=== PATIENT | male | born 1960 | race Caucasian/White ===

== ENCOUNTER 2017-01-13 15:22 | Inpatient (IN) | payer OTHER ==
[2017-01-13] VITALS (7 sets, daily range): BP systolic 119–128; BP diastolic 73–82; PULSE 75–111; RESP 16–24; TEMP 98.5–98.9; O2SAT 96–100
[~2017-01-13] VITALS: Ht 172.7 cm; Wt 85.3 kg
[2017-01-13] MEDS ORDERED: DIPHTH/TETANUS/ACEL PERTUSSIS (BOOSTER) 0.5 ML VIAL/PFS IM ONE (15:31)
[2017-01-13] MEDS ORDERED: MIDAZOLAM HCL 5 MG/ML VIAL (1 ML) ONE (15:31)
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
[2017-01-13 15:53] LABS: AUTOMATED NEUTROPHIL # 2.8 TH/MM3 (1.8-7.7); BASOPHIL % 0.5 % (0.0-2.0); EOSINOPHIL % 0.2 % (0.0-4.0); HEMATOCRIT 44.8 % (39.0-51.0); HEMO FLAGS DIFF FINAL; LYMPH % 23.3 % (9.0-44.0); LYMPHOCYTE # 1.1 TH/MM3 (1.0-4.8); MEAN CELL VOLUME 96.7 FL (80.0-100.0); MEAN CORPUSCULAR HEMOGLOBIN 33.9 PG (27.0-34.0); MONO % 16.8 % (0.0-8.0); NEUT % 59.2 % (16.0-70.0); PLATELET COUNT 135 TH/MM3 (150-450); RED BLOOD COUNT 4.64 MIL/MM3 (4.50-5.90); RED CELL DISTRIBUTION WIDTH 14.5 % (11.6-17.2); WHITE BLOOD COUNT 4.8 TH/MM3 (4.0-11.0)
[2017-01-13] MEDS ORDERED: IOHEXOL 350 MG/ML 10 ML VIAL (for RAD DIAG) IV ONE (15:55)
[2017-01-13 15:59] LABS: I-STAT POTASSIUM 3.7 MMOL/L (3.5-4.9)
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
[2017-01-13 16:08] LABS: APTT (PATIENT) 24.8 SEC (24.3-30.1); INTERNATIONAL NORMALIZED RATIO 0.9 RATIO; PROTHROMBIN TIME - PATIENT 9.9 SEC (9.8-11.6)
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
[2017-01-13] MEDS ORDERED: SODIUM CHLORIDE 0.9% FLUSH 10 ML FLUSH IV FLUSH PRN (16:15)
[2017-01-13] MEDS ORDERED: CHLORHEXIDINE GLUCONATE 2 % 1 PACK (2 CLOTHS) TOP PRN (16:15)
[2017-01-13] MEDS ORDERED: MISCELLANEOUS NURSING INFORMATION XX SCH (16:15)
[2017-01-13] MEDS ORDERED: ONDANSETRON HCL 4 MG/2 ML VIAL IV PRN (16:15)
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
[2017-01-13] MEDS ORDERED: PROPOFOL 200 MG/20 ML AMP IV ONE (16:45)
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
--- NOTE | 2017-01-13 16:49 | PD.CONS ---
HPI Consult Requested By Primary Care Physician Review of Systems UNOBTAINABLE ROS Limitations: Clinical Condition, Intubated, Altered Mental Status Past Family Social History Allergies: Coded Allergies: UNOBTAINABLE (Unverified , 01/13/17) Past Medical History UNOBTAINABLE Past Surgical History UNOBTAINABLE Reported Medications UNOBTAINABLE Active Ordered Medications Current Medications Midazolam HCl (Versed Inj) 5 mg STK-MED ONCE .ROUTE ; Start 01/13/17 at 15:31; Stop 01/13/17 at 15:42; Status DC Diphtheria/ Tetanus/Acell Pertussis (Boostrix Inj) 0.5 ml STK-MED ONCE IM ; Start 01/13/17 at 15:31; Stop 01/13/17 at 15:43; Status DC Iohexol 100 ml 100 ml STK-MED ONCE IV Last administered on 01/13/17 15:55; Start 01/13/17 at 15:55; Stop 01/13/17 at 15:56; Status DC Sodium Chloride (NS 1000 ml Inj) 1,000 ml @ 125 mls/hr Q8H IV Last administered on 01/13/17 20:37; Start 01/13/17 at 16:02 Sodium Chloride (NS Flush) 2 ml UNSCH PRN IV FLUSH FLUSH AFTER USING IV ACCESS ; Start 01/13/17 at 16:15 Sodium Chloride (NS Flush) 2 ml BID IV FLUSH Last administered on 01/13/17 20: 37; Start 01/13/17 at 21:00 Fentanyl Citrate (fentaNYL INJ) 50 mcg Q1H PRN IV PUSH Pain scale 6-10 &/or sedation; Start 01/13/17 at 16:15 Ondansetron HCl (Zofran Inj) 4 mg Q6H PRN IV NAUSEA OR VOMITING; Start 01/13/17 at 16:15 Lactulose (Lactulose Liq) 30 ml DAILY PO ; Start 01/13/17 at 16:15 Miscellaneous Information 1 Q361D XX Last administered on 01/13/17 20:37; Start 01/13/17 at 16:15 Chlorhexidine Gluconate (Chlorhexidine 2% Cloth) 3 pack Taper DAILY@04 TOP ; Start 01/14/17 at 04:00; Stop 01/10/18 at 03:59 Chlorhexidine Gluconate (Chlorhexidine 2% Cloth) 3 pack UNSCH PRN TOP HYGIENIC CARE; Start 01/13/17 at 16:15 Propofol (Diprivan 200 Mg/20 ml Inj) 100 mg ONCE ONCE IV ; Start 01/13/17 at 16 :45; Stop 01/13/17 at 16:46; Status DC Chlordiazepoxide (Librium) 50 mg ONCE PO ; Start 01/13/17 at 20:30; Stop 01/13/17 at 20:31; Status DC Family History UNOBTAINABLE Social History UNOBTAINABLE Physical Exam Vital Signs Vital Signs Date Time Temp Pulse Resp B/P Pulse Ox O2 Delivery O2 Flow Rate FiO2 01/13/17 15:30 100 4.00 Physical Exam The patient is alert, confused, oriented to self. GCS is 15 Cranial nerve examination demonstrates the pupils to be equal, round, and reactive to light. Extra-ocular movements are intact with normal convergence. Facial motor function appears normal and symmetrical. Face sensation, hearing, visual haywood, and olfaction can not be assessed properly due to the patients condition. The patient has an intact corneal reflex and a gag reflex. Sternocleidomastoid and trapezius have normal and symmetrical strength. Other cranial nerves are intact. Neck is soft and supple. Cervical spine has a normal range of motion of the cervical spine without pain. There is no tenderness to palpation to the spinous processes or paraspinal muscles. Muscle testing reveals normal bulk and tone overall without rigidity, spasticity , fasciculations, or atrophy. Muscle strength is 5/5 in all muscle groups of both upper and lower extremities.Right lower extr exam limited due to his orthopedic dislocation Deep tendon reflexes are 1+ and symmetrical in the biceps, triceps, and brachioradialis, bilaterally, in the upper extremities. In the lower extremities , the patellar and Achilles are 1+, bilaterally. There is a bilateral plantar flexion response. Hoffmanns sign is negative. There is no clonus or other abnormal reflexes noted. Cerebellar examination is limited due to the patient condition, but no obvious deficits are noted. Laboratory Laboratory Tests Test 01/13/17 15:25 White Blood Count 4.8 Red Blood Count 4.64 Hemoglobin 15.7 Bedside Hemoglobin 16.3 Hematocrit 44.8 Bedside Hematocrit 48.0 Mean Corpuscular Volume 96.7 Mean Corpuscular Hemoglobin 33.9 Mean Corpuscular Hemoglobin 35.0 Concent Red Cell Distribution Width 14.5 Platelet Count 135 Mean Platelet Volume 7.4 Neutrophils (%) (Auto) 59.2 Lymphocytes (%) (Auto) 23.3 Monocytes (%) (Auto) 16.8 Eosinophils (%) (Auto) 0.2 Basophils (%) (Auto) 0.5 Neutrophils # (Auto) 2.8 Lymphocytes # (Auto) 1.1 Monocytes # (Auto) 0.8 Eosinophils # (Auto) 0.0 Basophils # (Auto) 0.0 CBC Comment DIFF FINAL Differential Comment Prothrombin Time 9.9 Prothromb Time International 0.9 Ratio Activated Partial 24.8 Thromboplast Time Bedside Sodium 141 Bedside Potassium 3.7 Bedside Chloride 107 Bedside Blood Urea Nitrogen 4 Bedside Creatinine 1.1 Bedside Glucose 141 Ethyl Alcohol Level 523 Blood Type A NEGATIVE Antibody Screen NEGATIVE Result Diagram: 01/13/171524 Imaging Last Impressions Pelvis X-Ray 01/13/171524 Signed Impressions: Service Date/Time: Friday, January 13, 2017 15:17 - CONCLUSION: Suspected dislocation of the right hip prosthesis. Dedicated hip x-ray suggested. Samuel Hanson Jr., MD Lumbar Spine CT 01/13/171524 Signed Impressions: Service Date/Time: Friday, January 13, 2017 15:50 - CONCLUSION: 1. Degenerated disc and facet arthritis throughout the lumbar spine as above. No acute fracture of the cervical spine is identified. Sarabjit Mckenzie MD Head CT 01/13/171524 Signed Impressions: Service Date/Time: Friday, January 13, 2017 15:39 - CONCLUSION: 1. 4.4 mm extra-axial fluid collection along the left frontal cortices most consistent with an acute, small subdural hematoma. There is no significant mass effect associated with this. Sarabjit Mckenzie MD Chest X-Ray 01/13/171524 Signed Impressions: Service Date/Time: Friday, January 13, 2017 15:17 - CONCLUSION: No acute disease. Samuel Hanson Jr., MD Cervical Spine CT 01/13/171524 Signed Impressions: Service Date/Time: Friday, January 13, 2017 15:39 - CONCLUSION: 1. No acute fracture of the cervical spine is identified. 2. Degenerative changes as above. Sarabjit Mckenzie MD Abdomen/Pelvis CT 01/13/17 1525 Signed Impressions: Service Date/Time: Friday, January 13, 2017 15:50 - CONCLUSION: No acute traumatic injury in the abdomen or pelvis. Reinier Bain MD Attending Statement I reviewed his clinical and radiological studies. neuro checks in a serial fashion. Placement of ICP monitor is not indicated at this time. Non surgical management. Folllow up CT in AM Syncope workup. Echocardiogram, carotid Dupklex, Holter. Consult neurology Respiratory. pulmonary toilette, nasotracheal suction, and breathing treatments with nebulizers. PT and OT eval Nutrition. Oral diet Right hip diaslocation. Consult orthopedics Alcohol intoxication IV fluid hydration. Librium Renal. monitor closely urine output, BUN and creatinine Endocrine. Monitor serial Acu checks and SSI for tight control ID monitor for signs of infection Protonix for stress ulcer prophylaxis Dimas hose and SCD's for DVT prophylaxis Rayshawn Harris MD January 13, 2017 16:49
--- NOTE | 2017-01-13 17:11 | RADRPT ---
EXAM DATE/TIME: 01/13/2017 17:05 [facility] COMPARISON: PELVIS AP ONLY, January 13, 2017, 15:17. INDICATIONS : Post reduction of the right hip. MEDICAL HISTORY : Unobtainble. SURGICAL HISTORY : Unobtainble. ENCOUNTER: Subsequent ACUITY: 1 day PAIN SCORE: Non-responsive. LOCATION: Right hip. FINDINGS: Single frontal view of the right hip reveals satisfactory appearance of right total hip arthroplasty. CONCLUSION: Satisfactory alignment Reinier Bain MD on January 13, 2017 at 17:08 Board Certified Radiologist. This report was verified electronically.
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
[2017-01-13] MEDS: LACTULOSE SYRUP 20 GM/30 ML CUP PO SCH (19:25)
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
[2017-01-13] MEDS ORDERED: chlordiazePOXIDE 25 MG CAP PO SCH (20:30)
[2017-01-13] MEDS: SODIUM CHLORIDE 0.9% FLUSH 10 ML FLUSH IV FLUSH SCH (20:37)
[2017-01-13] MEDS: SODIUM CHLOR 0.9% 1000 ML INJ 1,000 ML IV SCH ×2 (20:37→22:36)
[2017-01-13] MEDS ORDERED: chlordiazePOXIDE 25 MG CAP PO ONE (21:00)
--- NOTE | 2017-01-13 22:23 | RADRPT ---
EXAM DATE/TIME: 01/13/2017 22:09 [place] COMPARISON: CT BRAIN W/O CONTRAST, January 13, 2017, 15:39. INDICATIONS : Follow up subdural hematoma RADIATION DOSE: 47.56 CTDIvol (mGy) MEDICAL HISTORY : Non-responsive. SURGICAL HISTORY : Non-responsive. ENCOUNTER: Initial ACUITY: 1 day PAIN SCALE: 2/10 LOCATION: Left cranial TECHNIQUE: Multiple contiguous axial images were obtained of the head. Using automated exposure control and adj ustment of the mA and/or kV according to patient size, radiation dose was kept as low as reasonably a chievable to obtain optimal diagnostic quality images. FINDINGS: CEREBRUM: The ventricles are normal for age. No evidence of midline shift, mass lesion, or acute infarction. T here is a small subtle high density extra-axial hemorrhage again noted along the left frontal cortex. This is unchanged in appearance than measures approximately 3.3 cm in length and 4-5 mm in greatest diameter. There is no adjacent mass effect. POSTERIOR FOSSA: The cerebellum and brainstem are intact. The 4th ventricle is midline. The cerebellopontine angle i s unremarkable. EXTRACRANIAL: The visualized portion of the orbits is intact. SKULL: The calvaria is intact. No evidence of skull fracture. CONCLUSION: 1. Stable appearance of the extra-axial fluid collection along the left frontal cortex most consisten t with a small subdural hematoma. There is no mass effect. 2. No new hemorrhage. Jagjit Hernandez MD on January 13, 2017 at 22:16 Board Certified Radiologist. This report was verified electronically.
[2017-01-13] MEDS ORDERED: MULTIVITAMIN INJ 10 ML, THIAMINE INJ 100 MG, FOLIC ACID INJ 1 MG in DEXT 5%-NACL 0.9% 5... IV ONE (23:15)
[2017-01-14] VITALS (10 sets, daily range): BP systolic 126–157; BP diastolic 80–91; PULSE 77–100; RESP 14–24; TEMP 96.9–99; O2SAT 95–99
[2017-01-14] MEDS: SODIUM CHLOR 0.9% 1000 ML INJ 1,000 ML IV SCH ×5 (03:44→23:36)
[2017-01-14 04:56] LABS: BICARBONATE 20.7 MEQ/L (21.0-32.0); CALCIUM-PROTEIN CORRECTED 7.8 MG/DL (8.5-10.1); MAGNESIUM 1.7 MG/DL (1.5-2.5); POTASSIUM 3.2 MEQ/L (3.5-5.1); TOTAL BILIRUBIN ADULT 0.3 MG/DL (0.2-1.0)
[2017-01-14] MEDS: CHLORHEXIDINE GLUCONATE 2 % 1 PACK (2 CLOTHS) TOP SCH (05:24)
[2017-01-14 06:14] LABS: AUTOMATED NEUTROPHIL # 3.4 TH/MM3 (1.8-7.7); BASOPHIL % 0.3 % (0.0-2.0); HEMATOCRIT 41.2 % (39.0-51.0); LYMPH % 12.5 % (9.0-44.0); LYMPHOCYTE # 0.6 TH/MM3 (1.0-4.8); MEAN CORPUSCULAR HEMOGLOBIN 32.4 PG (27.0-34.0); MEAN CORPUSCULAR HGB CONC 32.7 % (32.0-36.0); NEUT % 74.2 % (16.0-70.0); PLATELET COUNT 89 TH/MM3 (150-450); RED BLOOD COUNT 4.16 MIL/MM3 (4.50-5.90); RED CELL DISTRIBUTION WIDTH 14.6 % (11.6-17.2); WHITE BLOOD COUNT 4.6 TH/MM3 (4.0-11.0)
[2017-01-14 06:28] LABS: HEMO FLAGS AUTO DIFF
[2017-01-14 07:57] LABS: PLATELET ESTIMATE SMEAR LOW (NORMAL); PLATELET MORPHOLOGY NORMAL (NORMAL); SCAN/DIFF AUTO DIFF CONFIRMED
[2017-01-14] MEDS: LACTULOSE SYRUP 20 GM/30 ML CUP PO SCH (08:54)
[2017-01-14] MEDS: SODIUM CHLORIDE 0.9% FLUSH 10 ML FLUSH IV FLUSH SCH ×2 (08:54→21:00)
[2017-01-14] MEDS ORDERED: POTASSIUM CHLOR 20 MEQ PREMIX 100 ML IV ONE (09:15)
[2017-01-14] MEDS: MULTIVITAMINS/MINERALS THERAPEUTIC TAB PO SCH (09:56)
[2017-01-14] MEDS: THIAMINE HCL 100 MG TAB PO SCH (09:56)
[2017-01-14] MEDS: FOLIC ACID 1 MG TAB PO SCH (09:56)
[2017-01-14] MEDS: oxyCODONE/ACETAMINOPHEN 5 MG/325 MG TAB PO PRN (11:21)
[2017-01-14] MEDS ORDERED: FLUMAZENIL 0.5 MG/5 ML VIAL IV PUSH PRN (13:30)
[2017-01-14] MEDS ORDERED: LORazepam 1 MG TAB PO PRN (13:30)
[2017-01-14] MEDS ORDERED: LORazepam 2 MG/ML VIAL IV PUSH PRN ×4 (13:30)
[2017-01-14] MEDS ORDERED: LORazepam 2 MG TAB PO PRN (13:30)
--- NOTE | 2017-01-14 13:57 | HHI.NSPN ---
Note Status Status: Progress Note Interval History Interval History 01/14. Remains neurologically stable. GCS 15. Mild headaches Labs, Micro, & Vital Signs Results Date Time Temp Pulse Resp B/P Pulse Ox O2 Delivery O2 Flow Rate FiO2 01/14/17 12:21 15 01/14/17 12:00 98.9 96 24 138/80 99 01/14/17 12:00 96 01/14/17 10:00 91 01/14/17 08:00 86 01/14/17 08:00 98.9 86 22 157/91 96 01/14/17 07:00 96 Nasal Cannula 2.00 01/14/17 06:00 100 01/14/17 04:00 98.4 100 14 143/82 97 01/14/17 04:00 100 01/14/17 02:52 18 01/14/17 02:00 98 01/14/17 00:00 99.0 100 19 126/82 96 01/14/17 00:00 100 01/13/17 22:00 111 01/13/17 20:00 110 01/13/17 20:00 98.6 110 23 119/73 96 01/13/17 19:00 100 Nasal Cannula 2.00 01/13/17 18:30 98.5 100 24 128/82 100 01/13/17 18:15 98.9 75 16 124/78 98 Nasal Cannula 2 01/13/17 16:58 98 Nasal Cannula 4.00 01/13/17 16:58 98 4.00 01/13/17 16:45 16 100 Nasal Cannula 2 01/13/17 16:30 100 Room Air 01/13/17 15:30 100 Nasal Cannula 4.00 01/13/17 15:30 100 4.00 01/14/17 07:00 Intake Total 1427 ml Output Total 3850 ml Balance -2423 ml Constitutional Vital Signs Date Time Temp Pulse Resp B/P Pulse Ox O2 Delivery O2 Flow Rate FiO2 01/14/17 12:21 15 01/14/17 12:00 98.9 96 24 138/80 99 01/14/17 12:00 96 01/14/17 10:00 91 01/14/17 08:00 86 01/14/17 08:00 98.9 86 22 157/91 96 01/14/17 07:00 96 Nasal Cannula 2.00 01/14/17 06:00 100 01/14/17 04:00 98.4 100 14 143/82 97 01/14/17 04:00 100 01/14/17 02:52 18 01/14/17 02:00 98 01/14/17 00:00 99.0 100 19 126/82 96 01/14/17 00:00 100 01/13/17 22:00 111 01/13/17 20:00 110 01/13/17 20:00 98.6 110 23 119/73 96 01/13/17 19:00 100 Nasal Cannula 2.00 01/13/17 18:30 98.5 100 24 128/82 100 01/13/17 18:15 98.9 75 16 124/78 98 Nasal Cannula 2 01/13/17 16:58 98 Nasal Cannula 4.00 01/13/17 16:58 98 4.00 01/13/17 16:45 16 100 Nasal Cannula 2 01/13/17 16:30 100 Room Air 01/13/17 15:30 100 Nasal Cannula 4.00 01/13/17 15:30 100 4.00 01/14/17 07:00 Intake Total 1427 ml Output Total 3850 ml Balance -2423 ml Review of Systems/Exam Exam Mr. Alba is alert and oriented x 3. Follows commands without apraxia. Speech is fluent. Cranial nerve examination: pupils equal, round, and reactive to light. Extra- ocular movements are intact with normal convergence. Facial motor function normal and symmetrical. Neck is soft and supple. Muscle strength is 5/5 in all muscle groups of both upper and left lower extremities. Right lower extremity exam limited due to his orthopedic dislocation There is a bilateral plantar flexion response. Hoffmanns sign is negative. Cerebellar examination is intact finger to nose Medications Current Medications Current Medications Midazolam HCl (Versed Inj) 5 mg STK-MED ONCE .ROUTE ; Start 01/13/17 at 15:31; Stop 01/13/17 at 15:42; Status DC Diphtheria/ Tetanus/Acell Pertussis (Boostrix Inj) 0.5 ml STK-MED ONCE IM ; Start 01/13/17 at 15:31; Stop 01/13/17 at 15:43; Status DC Iohexol 100 ml 100 ml STK-MED ONCE IV Last administered on 01/13/17 15:55; Start 01/13/17 at 15:55; Stop 01/13/17 at 15:56; Status DC Sodium Chloride (NS 1000 ml Inj) 1,000 ml @ 200 mls/hr Q5H IV Last administered on 01/14/17 23:36; Start 01/13/17 at 16:02; Stop 01/15/17 at 06:55; Status DC Sodium Chloride (NS Flush) 2 ml UNSCH PRN IV FLUSH FLUSH AFTER USING IV ACCESS ; Start 01/13/17 at 16:15; Stop 01/16/17 at 15:41; Status DC Sodium Chloride (NS Flush) 2 ml BID IV FLUSH Last administered on 01/16/17 08: 29; Start 01/13/17 at 21:00; Stop 01/16/17 at 15:41; Status DC Fentanyl Citrate (fentaNYL INJ) 50 mcg Q1H PRN IV PUSH Pain scale 6-10 &/or sedation Last administered on 01/14/17 01:52; Start 01/13/17 at 16:15; Stop at 10:56; Status DC Ondansetron HCl (Zofran Inj) 4 mg Q6H PRN IV NAUSEA OR VOMITING Last administered on 01/14/17 05:24; Start 01/13/17 at 16:15; Stop 01/16/17 at 15:41; Status DC Lactulose (Lactulose Liq) 30 ml DAILY PO ; Start 01/13/17 at 16:15; Stop 01/16/17 at 15:41; Status DC Miscellaneous Information 1 [id number] Last administered on 01/13/17 20:37; Start 01/13/17 at 16:15; Stop 01/16/17 at 15:41; Status DC Chlorhexidine Gluconate (Chlorhexidine 2% Cloth) 3 pack Taper DAILY@04 TOP Last administered on 01/14/17 05:24; Start 01/14/17 at 04:00; Stop 01/16/17 at 15: 41; Status DC Chlorhexidine Gluconate (Chlorhexidine 2% Cloth) 3 pack UNSCH PRN TOP HYGIENIC CARE; Start 01/13/17 at 16:15; Stop 01/16/17 at 15:41; Status DC Propofol (Diprivan 200 Mg/20 ml Inj) 100 mg ONCE ONCE IV ; Start 01/13/17 at 16 :45; Stop 01/13/17 at 16:46; Status DC Chlordiazepoxide (Librium) 50 mg ONCE PO ; Start 01/13/17 at 20:30; Stop 01/13/17 at 20:31; Status Cancel Chlordiazepoxide (Librium) 50 mg ONCE ONCE PO ; Start 01/13/17 at 20:45; Stop at 20:46; Status Cancel Chlordiazepoxide 50 mg 50 mg ONCE ONCE PO Last administered on 01/13/17 21:07 ; Start 01/13/17 at 21:00; Stop 01/13/17 at 21:01; Status DC Multivitamins 10 ml/Thiamine HCl 100 mg/Folic Acid 1 mg/Dextrose/ Sodium Chloride 511.2 ml @ 125 mls/hr ONCE ONCE IV Last administered on 01/13/17 22: 48; Start 01/13/17 at 23:15; Stop 01/14/17 at 03:20; Status DC Potassium Chloride (KCl 20 Meq Premix Inj) 100 ml @ 50 mls/hr ONCE ONCE IV Last administered on 01/14/17 09:29; Start 01/14/17 at 09:15; Stop 01/14/17 at 11: 14; Status DC Folic Acid (Folate) 1 mg DAILY PO Last administered on 01/16/17 08:29; Start at 09:45; Stop 01/16/17 at 15:41; Status DC Thiamine HCl (Vitamin B1) 100 mg DAILY PO Last administered on 01/16/17 08:29; Start 01/14/17 at 09:45; Stop 01/16/17 at 15:41; Status DC Multivitamins/ Minerals Therapeutic (Theragran M Tab) 1 tab DAILY PO Last administered on 01/16/17 08:29; Start 01/14/17 at 09:45; Stop 01/16/17 at 15:41; Status DC Oxycodone/ Acetaminophen (Percocet 5-325 Mg) 1 tab Q4H PRN PO PAIN GREATER THAN 5 Last administered on 01/16/17 13:50; Start 01/14/17 at 10:00; Stop at 15:41; Status DC Lorazepam (Ativan) 1 mg Q4H PRN PO CIWA 8-10 Last administered on 01/14/17 18: 40; Start 01/14/17 at 13:30; Stop 01/16/17 at 15:41; Status DC Lorazepam (Ativan Inj) 1 mg Q4H PRN IV PUSH CIWA 8-10; Start 01/14/17 at 13:30; Stop 01/16/17 at 15:41; Status DC Lorazepam (Ativan) 2 mg Q2H PRN PO CIWA 11-14; Start 01/14/17 at 13:30; Stop 01/16/17 at 15:41; Status DC Lorazepam (Ativan Inj) 2 mg Q2H PRN IV PUSH CIWA 11-14; Start 01/14/17 at 13:30 ; Stop 01/16/17 at 15:41; Status DC Lorazepam (Ativan Inj) 2 mg Q1H PRN IV PUSH CIWA 15-20; Start 01/14/17 at 13:30 ; Stop 01/16/17 at 15:41; Status DC Lorazepam (Ativan Inj) 2 mg Q15M PRN IV PUSH CIWA > 20; Start 01/14/17 at 13:30 ; Stop 01/16/17 at 15:41; Status DC Flumazenil (Romazicon Inj) 0.2 mg Q1M PRN IV PUSH SEE LABEL COMMENTS; Start 01/14/17 at 13:30; Stop 01/16/17 at 15:41; Status DC Acetaminophen (Tylenol) 650 mg Q4H PRN PO pain 1-4; Start 01/15/17 at 12:00; Stop 01/16/17 at 15:41; Status DC Medical Decision Making MDM Remarks Last Impressions Head CT 01/13/172199 Signed Impressions: Service Date/Time: Friday, January 13, 2017 22:09 - CONCLUSION: 1. Stable appearance of the extra-axial fluid collection along the left frontal cortex most consistent with a small subdural hematoma. There is no mass effect. 2. No new hemorrhage. Jagjit Hernandez MD Thoracic Spine CT 01/13/17 1525 Signed Impressions: Service Date/Time: Friday, January 13, 2017 15:50 - CONCLUSION: No acute disease. Samuel Hanson Jr., MD Pelvis X-Ray 01/13/17 1525 Signed Impressions: Service Date/Time: Friday, January 13, 2017 15:17 - CONCLUSION: Suspected dislocation of the right hip prosthesis. Dedicated hip x-ray suggested. Samuel Hanson Jr., MD Lumbar Spine CT 01/13/17 1525 Signed Impressions: Service Date/Time: Friday, January 13, 2017 15:50 - CONCLUSION: 1. Degenerated disc and facet arthritis throughout the lumbar spine as above. No acute fracture of the cervical spine is identified. Sarabjit Mckenzie MD Chest X-Ray 01/13/17 1525 Signed Impressions: Service Date/Time: Friday, January 13, 2017 15:17 - CONCLUSION: No acute disease. Samuel Hanson Jr., MD Chest CT 01/13/17 1525 Signed Impressions: Service Date/Time: Friday, January 13, 2017 15:50 - CONCLUSION: 1. No acute intrathoracic process. 2. Prior granulomatous disease. Samuel Hanson Jr., MD Cervical Spine CT 01/13/17 1525 Signed Impressions: Service Date/Time: Friday, January 13, 2017 15:39 - CONCLUSION: 1. No acute fracture of the cervical spine is identified. 2. Degenerative changes as above. Sarabjit Mckenzie MD Abdomen/Pelvis CT 01/13/17 1525 Signed Impressions: Service Date/Time: Friday, January 13, 2017 15:50 - CONCLUSION: No acute traumatic injury in the abdomen or pelvis. Reinier Bain MD ADDENDUM: COMPARISON: PELVIS AP ONLY, January 13, 2017, 15:17. HIP RIGHT LATERAL ONLY WO AP PELVIS, January 13, 2017, 16:30. Posterior dislocation of right ANGELICA Reinier Bain MD Hip X-Ray 01/13/17 0000 Signed Impressions: Service Date/Time: Friday, January 13, 2017 17:05 - CONCLUSION: Satisfactory alignment Reinier Bain MD Hand X-Ray 01/13/17 0000 Signed Impressions: Service Date/Time: Friday, January 13, 2017 16:24 - CONCLUSION: Unremarkable limited examination of the right hand. Reinier Bain MD Attending Statement Continue.neuro checks in a serial fashion. Non surgical management. Folllow up CT brain may be beneficial ETOH abuse. Counseled. Continue IV fluid hydration. Librium as needed Respiratory. pulmonary toilette, nasotracheal suction, and breathing treatments with nebulizers. PT and OT eval Nutrition. Oral diet Right hip diaslocation. Defer to orthopedics Renal. Continue to monitor closely urine output, BUN and creatinine Endocrine. Continue to Monitor serial Acu checks and SSI for tight control ID continued to monitor for signs of infection Continue Protonix for stress ulcer prophylaxis Continue Dimas hose and SCD's for DVT prophylaxis The exam, history, and the medical decision-making described in the above note were completed with the assistance of the mid-level provider. I reviewed and agree with the findings presented. I attest that I had a [id number] encounter with the patient on the same day, and personally performed and documented my assessment and findings in the medical record. Rayshawn Harris MD January 14, 2017 13:57
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
--- NOTE | 2017-01-14 18:45 | EKG ---
Date Performed: 01/13/2017 Time Performed: 16:53:33 PTAGE: 89 years EKG: SINUS TACHYCARDIA ABNORMAL RHYTHM ECG NO PREVIOUS TRACING DOCTOR: Patrick Rider Interpretating Date/Time 01/14/2017 18:42:57
[2017-01-15] VITALS: BP 140/86; PULSE 97; RESP 20; TEMP 99.3; O2SAT 96
[2017-01-15 04:00] VITALS: BP 159/96; PULSE 92; RESP 20; TEMP 98; O2SAT 96
[2017-01-15] MEDS: CHLORHEXIDINE GLUCONATE 2 % 1 PACK (2 CLOTHS) TOP SCH (04:00)
[2017-01-15] MEDS: SODIUM CHLOR 0.9% 1000 ML INJ 1,000 ML IV SCH (04:48)
[2017-01-15] MEDS: oxyCODONE/ACETAMINOPHEN 5 MG/325 MG TAB PO PRN ×3 (05:40→20:41)
[2017-01-15] MEDS: SODIUM CHLORIDE 0.9% FLUSH 10 ML FLUSH IV FLUSH SCH ×2 (08:03→21:00)
[2017-01-15] MEDS: THIAMINE HCL 100 MG TAB PO SCH (08:04)
[2017-01-15] MEDS: FOLIC ACID 1 MG TAB PO SCH (08:04)
[2017-01-15] MEDS: MULTIVITAMINS/MINERALS THERAPEUTIC TAB PO SCH (08:04)
[2017-01-15] MEDS: LACTULOSE SYRUP 20 GM/30 ML CUP PO SCH (08:04)
[2017-01-15 08:24] LABS: HEMATOCRIT 41.3 % (39.0-51.0); MEAN CORPUSCULAR HEMOGLOBIN 32.5 PG (27.0-34.0); MEAN CORPUSCULAR HGB CONC 33.9 % (32.0-36.0); PLATELET COUNT 77 TH/MM3 (150-450); RED CELL DISTRIBUTION WIDTH 14.2 % (11.6-17.2); WHITE BLOOD COUNT 5.7 TH/MM3 (4.0-11.0)
[2017-01-15 08:25] VITALS: BP 165/93; PULSE 84; RESP 18; TEMP 98; O2SAT 96
[2017-01-15 08:25] LABS: REVIEW FLAG AUTO DIFF
[2017-01-15 09:15] LABS: ALKALINE PHOSPHATASE 91 U/L (45-117); ALT (GPT) 38 U/L (12-78); ANION GAP 8 MEQ/L (5-15); AST (GOT) 61 U/L (15-37); BICARBONATE 28.3 MEQ/L (21.0-32.0); BLOOD UREA NITROGEN 2 MG/DL (7-18); CHLORIDE 101 MEQ/L (98-107); GLOMERULAR FILTRATION RATE 145 ML/MIN (>89); POTASSIUM 3.3 MEQ/L (3.5-5.1); SODIUM (NA) 137 MEQ/L (136-145); TOTAL BILIRUBIN ADULT 0.6 MG/DL (0.2-1.0)
--- NOTE | 2017-01-15 11:58 | HHI.PR ---
Subjective Subjective Notes Pain controlled Has not been OOB yet Objective Vitals/I&O Vital Signs Date Time Temp Pulse Resp B/P Pulse Ox O2 Delivery O2 Flow Rate FiO2 01/15/17 08:25 98.0 84 18 165/93 96 01/15/17 07:30 Room Air 01/14/17 07:00 2.00 Labs Laboratory Tests Test 01/15/17 08:06 White Blood Count 5.7 Red Blood Count 4.30 Hemoglobin 14.0 Hematocrit 41.3 Mean Corpuscular Volume 96.0 Mean Corpuscular Hemoglobin 32.5 Mean Corpuscular Hemoglobin 33.9 Concent Red Cell Distribution Width 14.2 Platelet Count 77 Mean Platelet Volume 8.0 Sodium Level 137 Potassium Level 3.3 Chloride Level 101 Carbon Dioxide Level 28.3 Anion Gap 8 Blood Urea Nitrogen 2 Creatinine 0.58 Estimat Glomerular Filtration 145 Rate Random Glucose 115 Calcium Level 8.1 Total Bilirubin 0.6 Aspartate Amino Transf 61 (AST/SGOT) Alanine Aminotransferase 38 (ALT/SGPT) Alkaline Phosphatase 91 Total Protein 6.3 Albumin 3.0 Radiology Last Impressions Head CT 01/13/172199 Signed Impressions: Service Date/Time: Friday, January 13, 2017 22:09 - CONCLUSION: 1. Stable appearance of the extra-axial fluid collection along the left frontal cortex most consistent with a small subdural hematoma. There is no mass effect. 2. No new hemorrhage. Jagjit Hernandez MD Thoracic Spine CT 01/13/17 1525 Signed Impressions: Service Date/Time: Friday, January 13, 2017 15:50 - CONCLUSION: No acute disease. Samuel Hanson Jr., MD Pelvis X-Ray 01/13/171524 Signed Impressions: Service Date/Time: Friday, January 13, 2017 15:17 - CONCLUSION: Suspected dislocation of the right hip prosthesis. Dedicated hip x-ray suggested. Samuel Hanson Jr., MD Lumbar Spine CT 01/13/17 1525 Signed Impressions: Service Date/Time: Friday, January 13, 2017 15:50 - CONCLUSION: 1. Degenerated disc and facet arthritis throughout the lumbar spine as above. No acute fracture of the cervical spine is identified. Sarabjit Mckenzie MD Chest X-Ray 01/13/17 1525 Signed Impressions: Service Date/Time: Friday, January 13, 2017 15:17 - CONCLUSION: No acute disease. Samuel Hanson Jr., MD Chest CT 01/13/17 1525 Signed Impressions: Service Date/Time: Friday, January 13, 2017 15:50 - CONCLUSION: 1. No acute intrathoracic process. 2. Prior granulomatous disease. Samuel Hanson Jr., MD Cervical Spine CT 01/13/17 1525 Signed Impressions: Service Date/Time: Friday, January 13, 2017 15:39 - CONCLUSION: 1. No acute fracture of the cervical spine is identified. 2. Degenerative changes as above. Sarabjit Mckenzie MD Abdomen/Pelvis CT 01/13/17 1525 Signed Impressions: Service Date/Time: Friday, January 13, 2017 15:50 - CONCLUSION: No acute traumatic injury in the abdomen or pelvis. Reinier Bain MD ADDENDUM: COMPARISON: PELVIS AP ONLY, January 13, 2017, 15:17. HIP RIGHT LATERAL ONLY WO AP PELVIS, January 13, 2017, 16:30. Posterior dislocation of right ANGELICA Reinier Bain MD Hip X-Ray 01/13/17 0000 Signed Impressions: Service Date/Time: Friday, January 13, 2017 17:05 - CONCLUSION: Satisfactory alignment Reinier Bain MD Hand X-Ray 01/13/17 0000 Signed Impressions: Service Date/Time: Friday, January 13, 2017 16:24 - CONCLUSION: Unremarkable limited examination of the right hand. Reinier Bain MD A/P Assessment and Plan INJURIES: RIGHT hip prosthesis dislocation SDH Diet: Regular, tolerating Pulmonary: IS, encouraged patient use Pain: Percocet, DC IV Fentanyl. Activity: OOB. PT ordered, awaiting evaluation. (WBAT RLE) Bowel: Lactulose. No BM yet. DVT: SCDs -RIGHT hip prosthesis dislocation Non operative treatment Weightbearing as tolerated Orthopedics following -SDH Neurosurgery following Serial neuro checks Nonoperative management Follow-up CT brain stable Case management consulted to assist with discharge planning. Plan of care discussed with patient and RN at bedside. Tegan Chambers January 15, 2017 11:58
[2017-01-15 12:00] VITALS: BP 148/96; PULSE 85; RESP 18; TEMP 98.4; O2SAT 96
[2017-01-15] MEDS ORDERED: ACETAMINOPHEN 325 MG TAB PO PRN (12:00)
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
[2017-01-15 16:00] VITALS: BP 131/91; PULSE 113; RESP 18; TEMP 97.6; O2SAT 97
[2017-01-15 20:00] VITALS: BP 134/91; PULSE 122; RESP 22; TEMP 99.5; O2SAT 96
[2017-01-16] VITALS: BP 141/93; PULSE 118; RESP 20; TEMP 97.6; O2SAT 97
[2017-01-16] MEDS: CHLORHEXIDINE GLUCONATE 2 % 1 PACK (2 CLOTHS) TOP SCH (03:56)
[2017-01-16 04:00] VITALS: BP 144/98; PULSE 104; RESP 20; TEMP 98.3; O2SAT 97
[2017-01-16] MEDS: oxyCODONE/ACETAMINOPHEN 5 MG/325 MG TAB PO PRN ×3 (05:17→13:50)
[2017-01-16 08:00] VITALS: BP 142/98; PULSE 89; RESP 16; TEMP 97.6; O2SAT 97
[2017-01-16] MEDS: MULTIVITAMINS/MINERALS THERAPEUTIC TAB PO SCH (08:29)
[2017-01-16] MEDS: THIAMINE HCL 100 MG TAB PO SCH (08:29)
[2017-01-16] MEDS: LACTULOSE SYRUP 20 GM/30 ML CUP PO SCH ×2 (08:29→08:31)
[2017-01-16] MEDS: SODIUM CHLORIDE 0.9% FLUSH 10 ML FLUSH IV FLUSH SCH (08:29)
[2017-01-16] MEDS: FOLIC ACID 1 MG TAB PO SCH (08:29)
[2017-01-16] MEDS ORDERED: ASPI1TAB69 PO (09:52)
[2017-01-16] MEDS ORDERED: IBUP400T20 PO (09:52)
[2017-01-16] MEDS ORDERED: PERC5TAB12 PO (11:14)
[2017-01-16 12:00] VITALS: BP 130/92; PULSE 94; RESP 16; TEMP 97.4; O2SAT 98
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
== END 2017-01-16 15:41 | disposition home or self-care (01) | DRG 559 ==
LOC: NEPI 15:22 → NEDA 16:42 → EDBD 16:42 → N03B 18:20 → N05A 01-14 14:04
PROVIDERS: ADMIT Surgery Trauma Surgery; ATTEND Surgery Trauma Surgery
PROC: 0SS9XZZ Reposition Right Hip Joint, External Approach (ICD-10-PCS; principal; 2017-01-13)
DX: T84.020A Dislocation of internal right hip prosthesis, initial encounter (principal); S06.5X0A Traumatic subdural hemorrhage without loss of consciousness, initial encounter; F10.129 Alcohol abuse with intoxication, unspecified; S60.221A Contusion of right hand, initial encounter; V47.5XXA Car driver injured in collision with fixed or stationary object in traffic accident, initial encounter; S01.311A Laceration without foreign body of right ear, initial encounter; Y83.1 Surgical operation with implant of artificial internal device as the cause of abnormal reaction of the patient, or of later complication, without mention of misadventure at the time of the procedure; Y92.410 Unspecified street and highway as the place of occurrence of the external cause; Y90.8 Blood alcohol level of 240 mg/100 ml or more
CPT/HCPCS: 27265; 51702; 70450; 71010; 71260; 72125; 72128; 72131; 72170; 73120; 73501; 74177; 76937; 80053; 80307; 82435; 82565; 82947; 83735; 84100; 84132; 84295; 84520; 85025; 85027; 85610; 85730; 86850; 86900; 86901; 87641; 90471; 90715; 93005; 94150; 96361; 96374; 99152; 99153; 99291; G0390; J2250; J2405; J3010; J3411; J3480; J7030; J7042; L1830; Q9967